=== PATIENT | female | born 1945 | race Caucasian/White ===

== ENCOUNTER → 2016-12-29 | Outpatient (CLI) | payer BC, MEDICARE ==
--- NOTE | 2016-12-30 08:09 | MM ---
Reason for exam: follow-up at short interval from prior study. Last mammogram was performed 6 months ago. History: Patient is postmenopausal. Benign FNA biopsy of the right breast, October 22, 2010. 2 benign cyst aspirations of the left breast. Cyst aspiration of the right breast. Took hormonal contraceptives. Took estrogen for 10 years beginning at age 46. Physical Findings: Nurse did not find any significant physical abnormalities on exam. MG 3D Diag Mammo W/Cad RT CC and MLO view(s) were taken of the right breast. Prior study comparison: June 29, 2016, bilateral MG 3d screening mammo w/cad. June 16, 2015, bilateral MG screening mammo w CAD. The breast tissue is heterogeneously dense. This may lower the sensitivity of mammography. There is chronic nodularity in the right breast. No significant new findings when compared with previous films. These results were verbally communicated with the patient and result sheet given to the patient on 12/29/16. ASSESSMENT: Benign, BI-RAD 2 RECOMMENDATION: Return to routine screening mammogram schedule for both breasts. Back on schedule for June 2017.
--- NOTE | 2016-12-30 08:12 | USB ---
Reason for exam: follow-up at short interval from prior study. History: Patient is postmenopausal. Benign FNA biopsy of the right breast, October 22, 2010. 2 benign cyst aspirations of the left breast. Cyst aspiration of the right breast. Took hormonal contraceptives. Took estrogen for 10 years beginning at age 46. US Breast RT Right breast ultrasound demonstrates several oval, cystic lesions measuring 0.7 x 0.3 x 0.6cm at 3 o'clock, 1.0 x 0.8 x 1.0cm new at 10 o'clock, 1.0 x 0.6 x 1.0cm increased in size from previous at 10 o'clock and 2.7 x 0.8 x 1.9cm unchanged from previous at 11 o'clock. These results were verbally communicated with the patient and result sheet given to the patient on 12/29/16. ASSESSMENT: Benign, BI-RAD 2 RECOMMENDATION: Return to routine screening mammogram schedule for both breasts. Back on schedule for June 2017.
== END | disposition home or self-care (01) ==
LOC: RADMAMWWP 12:55
PROVIDERS: ATTEND Obstetrics & Gynecology
DX: Z09 Encounter for follow-up examination after completed treatment for conditions other than malignant neoplasm (principal)
CPT/HCPCS: 76641; G0206; G0279

== ENCOUNTER → 2017-07-04 | Outpatient (CLI) | payer BC, MEDICARE ==
--- NOTE | 2017-07-05 14:19 | MM ---
Reason for exam: screening (asymptomatic). Last mammogram was performed 6 months ago. History: Patient is postmenopausal. Benign FNA biopsy of the right breast, October 22, 2010. 2 benign cyst aspirations of the left breast. Cyst aspiration of the right breast. Took hormonal contraceptives. Took estrogen for 10 years beginning at age 46. Physical Findings: A clinical breast exam by your physician is recommended on an annual basis and results should be correlated with mammographic findings. MG 3D Screening Mammo W/Cad Bilateral CC and MLO view(s) were taken. Prior study comparison: December 29, 2016, right breast MG 3d diag mammo w/cad RT. June 29, 2016, bilateral MG 3d screening mammo w/cad. Finding #1: There is a 5 mm equal density (isodense), obscured mass in the upper outer quadrant of the left breast. Finding #2: There are typically benign calcifications in both breasts. There is a chronic nodularity bilaterally. New finding since December 29, 2016 and June 29, 2016. ASSESSMENT: Incomplete: need additional imaging evaluation, BI-RAD 0 RECOMMENDATION: Special view mammogram of the left breast. If lesion persists on supplemental views, image directed ultrasound is recommended. [facility] will attempt to contact patient to return for supplemental views and ultrasound if indicated.
== END | disposition home or self-care (01) ==
LOC: RADMAMWWP 12:49
PROVIDERS: ATTEND Obstetrics & Gynecology
DX: Z12.31 Encounter for screening mammogram for malignant neoplasm of breast (principal)
CPT/HCPCS: 77063; G0202

== ENCOUNTER → 2017-07-06 | Outpatient (CLI) | payer BC, MEDICARE ==
--- NOTE | 2017-07-06 11:09 | MM ---
Reason for exam: additional evaluation requested from abnormal screening. Last mammogram was performed less than 1 month ago. History: Patient is postmenopausal. Benign FNA biopsy of the right breast, October 22, 2010. 2 benign cyst aspirations of the left breast. Cyst aspiration of the right breast. Took hormonal contraceptives. Took estrogen for 10 years beginning at age 46. Physical Findings: Nurse did not find any significant physical abnormalities on exam. MG 3D Work Up W/Cad LT CC and MLO view(s) were taken of the left breast. Prior study comparison: July 04, 2017, bilateral MG 3d screening mammo w/cad. December 29, 2016, right breast MG 3d diag mammo w/cad RT. Waxing and waning nodularity noted likely reflecting cysts. These results were verbally communicated with the patient and result sheet given to the patient on 07/06/17. ASSESSMENT: Benign, BI-RAD 2 RECOMMENDATION: Return to routine screening mammogram schedule for both breasts.
== END | disposition home or self-care (01) ==
LOC: RADMAMWWP 10:04
PROVIDERS: ATTEND Obstetrics & Gynecology
DX: R92.8 Other abnormal and inconclusive findings on diagnostic imaging of breast (principal)
CPT/HCPCS: G0206; G0279

== ENCOUNTER → 2018-03-15 | Outpatient (CLI) | payer BC, MEDICARE ==
--- NOTE | 2018-03-15 10:56 | USB ---
Reason for exam: clinical finding. History: Patient is postmenopausal. Benign FNA biopsy of the right breast, October 22, 2010. 2 benign cyst aspirations of the left breast. Cyst aspiration of the right breast. Took hormonal contraceptives. Took estrogen for 10 years beginning at age 46. Indicated problem(s): lump or thickening in the right breast. Physical Findings: Nurse Summary: patient states enlarging right breast lump at 11 o'clock (nurse mj). US Breast RT Right complete breast ultrasound includes all four quadrants, the retroareolar region and axilla. Finding demonstrates a 0.5 x 0.6cm oval, hypoechoic lymph node at 9 o'clock, a 0.4 x 0.3 x 0.5cm oval, hypoechoic lesion at 10 o'clock, a 0.4 x 0.3 x 0.5cm oval, hypoechoic lesion at 10 o'clock, a 0.6 x 0.4 x 0.4cm oval, hypoechoic lesion at 10 o'clock and a 1.4 x 0.9 x 1.7cm oval, cystic lesion at 11 o'clock BB. These results were verbally communicated with the patient and result sheet given to the patient on 03/15/18. ASSESSMENT: Benign, BI-RAD 2 RECOMMENDATION: Return to routine screening mammogram schedule for both breasts. Back on schedule.
== END | disposition home or self-care (01) ==
LOC: RADUSWWP 09:34
PROVIDERS: ATTEND Family Medicine
DX: N63.10 Unspecified lump in the right breast, unspecified quadrant (principal)

== ENCOUNTER → 2018-09-01 | Outpatient (CLI) | payer BC, MEDICARE ==
--- NOTE | 2018-09-04 11:20 | MM ---
Reason for exam: screening (asymptomatic). Last mammogram was performed 1 year and 2 months ago. History: Patient is postmenopausal. Benign FNA biopsy of the right breast, October 22, 2010. 2 benign cyst aspirations of the left breast. Cyst aspiration of the right breast. Took hormonal contraceptives. Took estrogen for 10 years beginning at age 46. Physical Findings: A clinical breast exam by your physician is recommended on an annual basis and results should be correlated with mammographic findings. MG 3D Screening Mammo W/Cad Bilateral CC and MLO view(s) were taken. Prior study comparison: July 06, 2017, left breast MG 3d work up w/cad LT. July 04, 2017, bilateral MG 3d screening mammo w/cad. The breast tissue is heterogeneously dense. This may lower the sensitivity of mammography. There is chronic nodularity bilaterally. No significant changes when compared with prior studies. ASSESSMENT: Benign, BI-RAD 2 RECOMMENDATION: Routine screening mammogram of both breasts in 1 year.
== END | disposition home or self-care (01) ==
LOC: RADMAMWWP 14:17
PROVIDERS: ATTEND Family Medicine
DX: Z12.31 Encounter for screening mammogram for malignant neoplasm of breast (principal)
CPT/HCPCS: 77063; 77067

== ENCOUNTER → 2019-09-04 | Outpatient (CLI) | payer BC, MEDICARE ==
--- NOTE | 2019-09-05 10:44 | MM ---
Reason for exam: screening (asymptomatic). Last mammogram was performed 1 year ago. History: Patient is postmenopausal. Benign FNA biopsy of the right breast, October 22, 2010. 2 benign cyst aspirations of the left breast. Cyst aspiration of the right breast. Took hormonal contraceptives. Took estrogen for 10 years beginning at age 46. Physical Findings: A clinical breast exam by your physician is recommended on an annual basis and results should be correlated with mammographic findings. MG 3D Screening Mammo W/Cad Bilateral CC and MLO view(s) were taken. Prior study comparison: September 01, 2018, bilateral MG 3d screening mammo w/cad. December 29, 2016, right breast MG 3d diag mammo w/cad RT. June 29, 2016, bilateral MG 3d screening mammo w/cad. The breast tissue is heterogeneously dense. This may lower the sensitivity of mammography. Finding: There is an intermediate concern, suspicious 7 mm high density, round mass located 6 cm from the nipple in the 6 o'clock position of the right breast consistent with possible cyst. There is a chronic nodularity bilaterally. New finding since September 01, 2018, , December 29, 2016, and June 29, 2016. ASSESSMENT: Incomplete: need additional imaging evaluation, BI-RAD 0 RECOMMENDATION: Ultrasound of the right breast. [facility] will attempt to contact patient to return for ultrasound.
== END | disposition home or self-care (01) ==
LOC: RADMAMWWP 12:57
PROVIDERS: ATTEND Family Medicine
DX: Z12.31 Encounter for screening mammogram for malignant neoplasm of breast (principal)
CPT/HCPCS: 77063; 77067

== ENCOUNTER → 2019-09-06 | Outpatient (CLI) | payer BC, MEDICARE ==
--- NOTE | 2019-09-06 14:06 | USB ---
Reason for exam: additional evaluation requested from abnormal screening. History: Patient is postmenopausal. Benign FNA biopsy of the right breast, October 22, 2010. 2 benign cyst aspirations of the left breast. Cyst aspiration of the right breast. Took hormonal contraceptives. Took estrogen for 10 years beginning at age 46. Physical Findings: Nurse Summary: 6 o'clock lesion on mammogram (nurse ms). US Breast Workup Limited RT Right limited breast ultrasound including focal area of concern, retroareolar and axilla demonstrates a 0.7 x 0.6 x 0.6cm round, cystic lesion at 6 o'clock, a 0.6 x 0.5 x 0.4cm round, cystic lesion at 9 o'clock and a 0.7 x 0.7 x 0.6cm round, cystic lesion at 9 o'clock. These results were verbally communicated with the patient and result sheet given to the patient on 09/06/19. ASSESSMENT: Benign, BI-RAD 2 RECOMMENDATION: Return to routine screening mammogram schedule for both breasts.
== END | disposition home or self-care (01) ==
LOC: RADUSWWP 12:47
PROVIDERS: ATTEND Family Medicine
DX: R92.8 Other abnormal and inconclusive findings on diagnostic imaging of breast (principal)

== ENCOUNTER → 2020-10-10 | Outpatient (CLI) | payer BC, MEDICARE ==
--- NOTE | 2020-10-14 11:34 | MM ---
Reason for exam: screening (asymptomatic). Last mammogram was performed 1 year and 1 month ago. History: Patient is postmenopausal. Benign FNA biopsy of the right breast, October 22, 2010. 2 benign cyst aspirations of the left breast. Cyst aspiration of the right breast. Took hormonal contraceptives. Took estrogen for 10 years beginning at age 46. Physical Findings: A clinical breast exam by your physician is recommended on an annual basis and results should be correlated with mammographic findings. MG 3D Screening Mammo W/Cad Bilateral CC and MLO view(s) were taken. Prior study comparison: September 04, 2019, bilateral MG 3d screening mammo w/cad. September 01, 2018, bilateral MG 3d screening mammo w/cad. The breast tissue is heterogeneously dense. This may lower the sensitivity of mammography. There is chronic nodularity bilaterally. 1.1cm circumscribed mass central 6 o'clock right breast increased from 7mm. ASSESSMENT: Incomplete: need additional imaging evaluation, BI-RAD 0 RECOMMENDATION: Ultrasound of the right breast. (6 o'clock) [facility] will attempt to contact patient to return for ultrasound.
== END | disposition home or self-care (01) ==
LOC: RADMAMWWP 13:13
PROVIDERS: ATTEND Family Medicine
DX: Z12.31 Encounter for screening mammogram for malignant neoplasm of breast (principal)
CPT/HCPCS: 77063; 77067

== ENCOUNTER → 2020-10-15 | Outpatient (CLI) | payer BC, MEDICARE ==
--- NOTE | 2020-10-15 09:08 | USB ---
Reason for exam: additional evaluation requested from abnormal screening. History: Patient is postmenopausal. Benign FNA biopsy of the right breast, October 22, 2010. 2 benign cyst aspirations of the left breast. Cyst aspiration of the right breast. Took hormonal contraceptives. Took estrogen for 10 years beginning at age 46. Physical Findings: Nurse Summary: patient states pain right upper outer quadrant on and off for years due to cysts (nurse TM). US Breast Workup Limited RT Right limited breast ultrasound including focal area of concern, retroareolar and axilla demonstrates a 1.0 x 0.9 x 0.9cm cystic lesion at 6 o'clock. These results were verbally communicated with the patient and result sheet given to the patient on 10/15/20. ASSESSMENT: Benign, BI-RAD 2 RECOMMENDATION: Return to routine screening mammogram schedule for both breasts.
== END | disposition home or self-care (01) ==
LOC: RADUSWWP 08:13
PROVIDERS: ATTEND Family Medicine
DX: R92.8 Other abnormal and inconclusive findings on diagnostic imaging of breast (principal)

== ENCOUNTER → 2021-10-12 | Outpatient (CLI) | payer MEDICARE, BC ==
--- NOTE | 2021-10-13 09:36 | MM ---
Reason for exam: screening (asymptomatic). Last mammogram was performed 1 year ago. History: Patient is postmenopausal. Benign FNA biopsy of the right breast, October 22, 2010. 2 benign cyst aspirations of the left breast. Cyst aspiration of the right breast. Took hormonal contraceptives. Took estrogen for 10 years beginning at age 46. Physical Findings: A clinical breast exam by your physician is recommended on an annual basis and results should be correlated with mammographic findings. MG 3D Screening Mammo W/Cad Bilateral CC and MLO view(s) were taken. Prior study comparison: October 10, 2020, bilateral MG 3d screening mammo w/cad. September 04, 2019, bilateral MG 3d screening mammo w/cad. The breast tissue is heterogeneously dense. This may lower the sensitivity of mammography. Finding #1: There is a 17 mm oval mass in the upper outer quadrant, anterior position of the right breast, increased in size from prior. Finding #2: There are typically benign vascular, round calcifications in both breasts. There is a chronic nodularity bilaterally. ASSESSMENT: Incomplete: need additional imaging evaluation, BI-RAD 0 RECOMMENDATION: Ultrasound of the right breast. [facility] will attempt to contact patient to return for ultrasound.
--- NOTE | 2021-10-13 09:38 | USB ---
Reason for exam: additional evaluation requested from abnormal screening. History: Patient is postmenopausal. Benign FNA biopsy of the right breast, October 22, 2010. 2 benign cyst aspirations of the left breast. Cyst aspiration of the right breast. Took hormonal contraceptives. Took estrogen for 10 years beginning at age 46. Physical Findings: Nurse did not find any significant physical abnormalities on exam. US Breast Workup Limited RT Right limited breast ultrasound including focal area of concern, retroareolar and axilla demonstrates a 10 x 9 x 12mm oval, cystic lesion at 10 o'clock, likely corresponds to mammographic lesion on concern, a 4 x 3 x 4mm oval, hypoechoic lesion at 10 o'clock, suspect debris filled cyst, a 5 x 3 x 3mm benign, oval lymph node at 10 o'clock and a 7mm benign, oval lymph node at the axillary tail. These results were verbally communicated with the patient and result sheet given to the patient on 10/12/21. ASSESSMENT: Benign, BI-RAD 2 RECOMMENDATION: Routine screening mammogram of both breasts in 1 year.
== END | disposition home or self-care (01) ==
LOC: RADMAMWWP 13:36
PROVIDERS: ATTEND Family Medicine
DX: Z12.31 Encounter for screening mammogram for malignant neoplasm of breast (principal); N60.01 Solitary cyst of right breast; Z78.0 Asymptomatic menopausal state
CPT/HCPCS: 77063; 77067

== ENCOUNTER → 2022-10-18 | Outpatient (CLI) | payer MEDICARE, BC ==
--- NOTE | 2022-10-19 18:32 | MM ---
Reason for Exam: Screening (asymptomatic). Last screening mammogram was performed 12 month(s) ago. Patient History: Menarche at age 12. First Full-Term at age 21. Postmenopausal. Estrogen for 10 years from age 46 until age 56. Hormonal Contraceptives, ending at age 30. Cyst Aspiration on the Right side. 10/22/2010, Benign FNA Biopsy on the right side. Benign Cyst Aspiration on the left side. Benign Cyst Aspiration on the left side. Risk Values: Nolvia 5 year model risk: 1.8%. NCI Lifetime model risk: 3.5%. Prior Study Comparison: 09/04/2019 Bilateral Screening Mammogram, [facility]. 10/10/2020 Bilateral Screening Mammogram, [facility]. 10/12/2021 Bilateral Screening Mammogram, [facility]. Tissue Density: The breast tissue is heterogeneously dense. This may lower the sensitivity of mammography. Findings: Analyzed By CAD. There is chronic bilateral nodularity which shows some fluctuation in the interval. Benign bilateral vascular and oil cyst calcifications. No significant change from prior exams. Overall Assessment: Benign, BI-RAD 2 Management: Screening Mammogram of both breasts in 1 year. 1. Patient should continue monthly self breast exams. 2. A clinical breast exam by your physician is recommended on an annual basis. 3. This exam should not preclude additional follow-up of suspicious palpable abnormalities. Electronically signed and approved by: Kevin Dickey M.D. Radiologist
== END | disposition home or self-care (01) ==
LOC: RADMAMWWP 13:56
PROVIDERS: ATTEND Family Medicine
DX: Z12.31 Encounter for screening mammogram for malignant neoplasm of breast (principal); Z78.0 Asymptomatic menopausal state
CPT/HCPCS: 77063; 77067

== ENCOUNTER → 2023-06-24 | Outpatient (CLI) | payer MEDICARE, BC ==
--- NOTE | 2023-06-24 14:41 | MM ---
Reason for Exam: Clinical finding. Last screening mammogram was performed 9 month(s) ago. Patient History: Menarche at age 12. First Full-Term at age 21. Postmenopausal. Estrogen for 10 years from age 46 until age 56. Hormonal Contraceptives, ending at age 30. Cyst Aspiration on the Right side. 10/22/2010, Benign FNA Biopsy on the right side. Benign Cyst Aspiration on the left side. Benign Cyst Aspiration on the left side. Risk Values: Nolvia 5 year model risk: 1.8%. NCI Lifetime model risk: 3.3%. Tissue Density: The breast tissue is heterogeneously dense. This may lower the sensitivity of mammography. Findings: Analyzed By CAD. Stable chronic nodularity within both breasts. No new suspicious masses within either breast. Benign stable calcifications within both breasts. No suspicious grouped calcifications within either breast. No architectural distortion. Overall Assessment: Benign, BI-RAD 2 Management: Screening Mammogram of both breasts in 1 year. A clinical breast exam by your physician is recommended on an annual basis and results should be correlated with mammographic findings. This exam should not preclude additional follow-up of suspicious palpable abnormalities. Results were given to the patient verbally at the time of exam. Note on Nolvia scores and lifetime risk: 1. A Nolvia score greater than 3% is considered moderate risk. If this is the case, consider specialist referral to assess eligibility for a risk reducing agent. If overall lifetime risk for the development of breast cancer is 20% or higher, the patient may qualify for future screening with alternating mammogram and breast MRI. Electronically signed and approved by: Isrrael Alcaraz D.O.
== END | disposition home or self-care (01) ==
LOC: RADMAMWWP 14:08
PROVIDERS: ATTEND Family Medicine
DX: R92.1 Mammographic calcification found on diagnostic imaging of breast (principal); N64.4 Mastodynia; Z78.0 Asymptomatic menopausal state
CPT/HCPCS: 77066; G0279; 77062

== ENCOUNTER → 2024-03-02 | Outpatient (CLI) | payer MEDICARE, BC ==
--- NOTE | 2024-03-02 11:25 | MM ---
Reason for Exam: Clinical finding. Last screening mammogram was performed 8 month(s) ago. Patient History: Menarche at age 12. First Full-Term at age 21. Postmenopausal. Estrogen for 10 years from age 46 until age 56. Hormonal Contraceptives, ending at age 30. Cyst Aspiration on the Right side. 10/22/2010, Benign FNA Biopsy on the right side. Benign Cyst Aspiration on the left side. Benign Cyst Aspiration on the left side. Risk Values: Nolvia 5 year model risk: 1.8%. NCI Lifetime model risk: 3.3%. Prior Study Comparison: 10/12/2021 Bilateral Screening Mammogram, [facility]. 10/18/2022 Bilateral MG 3D screening mammo w/cad, [facility]. 06/24/2023 Bilateral MG 3D diag mammo w/cad [facility], [facility]. Tissue Density: Right: The breasts are heterogeneously dense, which may obscure small masses. Findings: Analyzed By CAD. Chronic underlying right breast nodularity. A 2.4 cm palpable mass upper outer quadrant right breast anterior to middle depth has been gradually enlarging, unchanged from the most recent prior. Benign vascular and a few scattered round calcifications are present. Overall Assessment: Incomplete: need additional imaging evaluation, BI-RAD 0 Management: Diagnostic Breast Ultrasound of the right breast. Electronically signed and approved by: Kevin Dickey M.D. Radiologist
--- NOTE | 2024-03-02 13:32 | USB ---
Reason for Exam: Follow-up at short interval from prior study. Patient History: Menarche at age 12. First Full-Term at age 21. Postmenopausal. Estrogen for 10 years from age 46 until age 56. Hormonal Contraceptives, ending at age 30. Cyst Aspiration on the Right side. 10/22/2010, Benign FNA Biopsy on the right side. Benign Cyst Aspiration on the left side. Benign Cyst Aspiration on the left side. Risk Values: Nolvia 5 year model risk: 1.8%. NCI Lifetime model risk: 3.3%. Technique: Method: Targeted. Doppler: Color. Patient Position: Supine. Prior Study Comparison: 10/12/2021 Bilateral Screening Mammogram, [facility]. 10/18/2022 Bilateral MG 3D screening mammo w/cad, [facility]. 06/24/2023 Bilateral MG 3D diag mammo w/cad [facility], [facility]. Findings: The upper outer quadrant of the right breast, the axilla of the right breast and the retroareolar of the right breast were scanned. Targeted ultrasound lateral aspect of the right breast 8:00 to 11:00 position including scanning of the subareolar region and axilla. * At the patient's 11:00 palpable site, 6 images from the nipple, there is a 3.3 x 1.9 x 1.6 cm benign cyst. * Additional scattered small cysts are present. * At the 10:00 position, 2 cm from the nipple, there is a nonspecific 5 mm round hypoechoic area, an adjacent ectatic duct is noted. Unclear if this represents an intraductal lesion versus debris-filled cyst. 6 month follow-up recommended. * At the 6:00 position, there is a 6 x 6 x 6 mm probable debris-filled cyst that can be reassessed in 6 months. * No other solid or cystic lesion or axillary lymphadenopathy. Overall Assessment: Probably benign, BI-RAD 3 Management: Diagnostic Breast Ultrasound of the right breast in 6 months. For the small 5 mm 10:00 lesion as well as the probable debris-filled cyst at the 6:00 position. If any of the patient's cysts become symptomatic, percutaneous aspiration can be considered. Results were given to the patient verbally at the time of exam. Electronically signed and approved by: Kevin Dickey M.D. Radiologist
== END ==
LOC: RADMAMWWP 10:30
PROVIDERS: ATTEND Family Medicine
DX: N63.10 Unspecified lump in the right breast, unspecified quadrant (principal); Z78.0 Asymptomatic menopausal state
CPT/HCPCS: 77065; 76642; G0279; 77061

== ENCOUNTER → 2024-08-13 | Outpatient (CLI) | payer MEDICARE, BC ==
--- NOTE | 2024-08-13 09:00 | USB ---
Reason for Exam: Follow-up at short interval from prior study. Patient History: Menarche at age 12. First Full-Term at age 21. Postmenopausal. Estrogen for 10 years from age 46 until age 56. Hormonal Contraceptives, ending at age 30. Cyst Aspiration on the Right side. 10/22/2010, Benign FNA Biopsy on the right side. Benign Cyst Aspiration on the left side. Benign Cyst Aspiration on the left side. Risk Values: Nolvia 5 year model risk: 1.8%. NCI Lifetime model risk: 3.0%. Prior Study Comparison: 10/18/2022 Bilateral MG 3D screening mammo w/cad, [facility]. 06/24/2023 Bilateral MG 3D diag mammo w/cad [facility], [facility] 03/02/2024 Right US breast limited RT, [facility]. 03/02/2024 Right MG 3D diag mammo w/cad RT, [facility]. Findings: The axilla of the right breast and the retroareolar of the right breast were scanned. Targeted ultrasound right breast 6:00 and 10:00 positions at the site of previously seen abnormalities. Additional scanning of the subareolar region and axilla. At the 6:00 position, 2 cm from the nipple, the previous 6 mm lesion has cleared and may now be a benign 5 mm cyst. At the 10:00 position, 2 cm from the nipple, the previous small 5 mm lesion has also cleared and now we see a 4 mm benign cyst surrounded by additional benign fibrocystic change. Scattered dense tissue is present throughout. Benign axillary lymph node. No other solid or cystic lesion. Overall Assessment: Incomplete: need additional imaging evaluation, BI-RAD 0 Management: Diagnostic Mammogram of both breasts. In time for the patient's annual exam. Results were given to the patient verbally at the time of exam. [facility], , 08/13/2024 8:57 AM. Electronically signed and approved by: Kevin Dickey M.D. Radiologist
== END | disposition home or self-care (01) ==
LOC: RADUSWWP 08:25
PROVIDERS: ATTEND Family Medicine

== ENCOUNTER → 2024-08-23 | Outpatient (CLI) | payer MEDICARE, BC ==
--- NOTE | 2024-08-23 15:34 | MM ---
Reason for Exam: Additional evaluation requested from abnormal screening. Last mammogram was performed 1 year(s) and 1 month(s) ago. Patient History: Menarche at age 12. First Full-Term at age 21. Postmenopausal. Estrogen for 10 years from age 46 until age 56. Hormonal Contraceptives, ending at age 30. Cyst Aspiration on the Right side. 10/22/2010, Benign FNA Biopsy on the right side. Benign Cyst Aspiration on the left side. Benign Cyst Aspiration on the left side. Risk Values: Nolvia 5 year model risk: 1.8%. NCI Lifetime model risk: 3.0%. Tissue Density: The breasts are heterogeneously dense, which may obscure small masses. Findings: Analyzed By CAD. The previous palpable mass upper outer quadrant right breast has resolved in keeping with an involuted cyst. Other bilateral chronic nodularity is unchanged. Scattered benign round and vascular calcifications are redemonstrated. No significant change from prior exams. Overall Assessment: Benign, BI-RAD 2 Management: Screening Mammogram of both breasts in 1 year. Results were given to the patient verbally at the time of exam. Patient should continue monthly self-breast exams. A clinical breast exam by your physician is recommended on an annual basis. This exam should not preclude additional follow-up of suspicious palpable abnormalities. Note on Nolvia scores and lifetime risk: 1. A Nolvia score greater than 3% is considered moderate risk. If this is the case, consider specialist referral to assess eligibility for a risk reducing agent. 2. If overall lifetime risk for the development of breast cancer is 20% or higher, the patient may qualify for future screening with alternating mammogram and breast MRI. [facility], , 08/23/2024 3:31 PM. Electronically signed and approved by: Kevin Dickey M.D. Radiologist
== END | disposition home or self-care (01) ==
LOC: RADMAMWWP 14:48
PROVIDERS: ATTEND Family Medicine
CPT/HCPCS: 77062; 77066